=== PATIENT | male | born 1980 | race Caucasian/White ===

== ENCOUNTER → 2021-04-24 08:00 | Outpatient (CLI) | payer OTHER ==
[~2021-04-24 08:00] MED LIST: FLAGYL500MG PO; LEVAQUIN750 MG PO
== END | disposition home or self-care (01) ==
LOC: PPH VACUNA 08:00
PROVIDERS: ATTEND Emergency Medicine Pediatric Emergency Medicine
DX: Z23 Encounter for immunization (principal)